=== PATIENT | male | born 1940 | race American Indian/Alaskan Native ===

== ENCOUNTER 2017-06-29 13:50 | Inpatient (IN) | payer OTHER ==
[~2017-06-29 13:50] MED LIST: AMLODIPINE BESYL5 MG PO; ATENOLOL25 MG PO; CIPRO500 MG PO; METOPROLOL SUCC25 MG; TAMS0.4C PO; TUSSIONEX PENNKI5 ML PO
== END 2017-07-03 11:56 | disposition home or self-care (01) | DRG 690 ==
LOC: SURH 13:50
PROC: 8E0ZXY6 Isolation (ICD-10-PCS; principal; 2017-06-29)
DX: N39.0 Urinary tract infection, site not specified (principal); B96.20 Unspecified Escherichia coli [E. coli] as the cause of diseases classified elsewhere; Z16.12 Extended spectrum beta lactamase (ESBL) resistance

== ENCOUNTER 2017-07-16 08:14 | Outpatient (CLI) | payer OTHER | END 2017-07-16 08:20 | disposition home or self-care (01) | LOC: TOM 08:14 | DX: N30.00 Acute cystitis without hematuria (principal); N20.0 Calculus of kidney ==

== ENCOUNTER 2017-07-17 07:27 | Outpatient (CLI) | payer OTHER | END 2017-07-17 07:38 | disposition home or self-care (01) | LOC: LAB 07:27 | DX: N30.00 Acute cystitis without hematuria (principal) ==

== ENCOUNTER 2017-09-06 07:56 | Outpatient (CLI) | payer OTHER | END 2017-09-06 08:00 | disposition home or self-care (01) | LOC: LAB 07:56 | DX: N40.0 Benign prostatic hyperplasia without lower urinary tract symptoms (principal); N30.00 Acute cystitis without hematuria; R31.29 Other microscopic hematuria ==

== ENCOUNTER 2017-09-06 08:30 | Outpatient (CLI) | payer OTHER | END 2017-09-06 08:39 | disposition home or self-care (01) | LOC: RAD 08:30 | DX: N40.0 Benign prostatic hyperplasia without lower urinary tract symptoms (principal); N20.0 Calculus of kidney ==

== ENCOUNTER 2017-10-01 05:40 | Day surgery (SDC) | payer OTHER ==
[~2017-10-01 05:40] MED LIST changes: +AMLODIPINE BESY10 MG PO; +FINASTERIDE; +METROPOROL; +TERAZOSIN HCL1 M1 PO
== END 2017-10-01 10:55 | disposition home or self-care (01) ==
LOC: CIR.AMB 05:40
DX: N21.0 Calculus in bladder (principal)

== ENCOUNTER 2020-10-03 11:15 | Emergency (ER) | payer OTHER ==
[~2020-10-03] VITALS: Ht 182.9 cm; Wt 117.9 kg
== END 2020-10-03 16:44 | disposition home or self-care (01) ==
LOC: ER 11:15 → EDBD 12:20 → ER 16:44
DX: L03.116 Cellulitis of left lower limb (principal); L03.115 Cellulitis of right lower limb

== ENCOUNTER 2021-05-23 10:03 | Outpatient (CLI) | payer OTHER | END 2021-05-23 10:21 | disposition home or self-care (01) | LOC: EDBD 10:03 → SONOGRAMA 10:03 | PROVIDERS: ATTEND Urology | DX: N40.0 Benign prostatic hyperplasia without lower urinary tract symptoms (principal); N30.00 Acute cystitis without hematuria; R31.1 Benign essential microscopic hematuria; M41.25 Other idiopathic scoliosis, thoracolumbar region ==

== ENCOUNTER 2022-06-19 10:59 | Outpatient (CLI) | payer OTHER | END 2022-06-19 11:10 | disposition home or self-care (01) | LOC: TOM 10:59 | PROVIDERS: ATTEND Internal Medicine | DX: N20.0 Calculus of kidney (principal); N40.0 Benign prostatic hyperplasia without lower urinary tract symptoms; N30.00 Acute cystitis without hematuria; R31.1 Benign essential microscopic hematuria ==

== ENCOUNTER 2022-07-15 13:38 | Outpatient (CLI) | payer OTHER | END 2022-07-15 13:45 | disposition home or self-care (01) | LOC: RAD 13:38 | PROVIDERS: ATTEND General Practice | DX: R06.09 Other forms of dyspnea (principal) ==

== ENCOUNTER 2023-05-10 12:36 | Emergency (ER) | payer OTHER ==
[~2023-05-10] VITALS: Ht 185.4 cm; Wt 113.4 kg
[2023-05-10] MEDS ORDERED: XARELTO10 MG PO (13:13)
[2023-05-10 16:39] LABS: HEMATOCRIT 40.7 % (39.0-48.0); HEMOGLOBIN 13.8 g/dL (13-16.00); MEAN CELL VOLUME 95.6 fL (80.0-100.00); MEAN CORPUSCULAR HEMOGLOBIN 32.4 pg (27.00-32.0); MEAN CORPUSCULAR HGB CONC 33.8 g/dl (32.0-36.0); PLATELET COUNT 156 K/uL (150-450); RED BLOOD COUNT 4.26 M/uL (4.00-6.00); RED CELL DISTRIBUTION WIDTH 14.5 % (11.5-14.5)
[2023-05-10 17:14] LABS: ALBUMIN 3.6 gm/dL (3.4-5.0); BILIRUBIN TOTAL 0.74 mg/dL (0.3-1.2); CALCIUM 9.1 mg/dL (8.5-10.1); CREATININE SERUM 0.77 mg/dL (0.70-1.30); GFR 96.72; GLOBULINA 3.5 G/DL (2.4-3.5); POTASSIUM 3.86 mEq/L (3.5-5.1); TOTAL PROTEIN 7.1 gm/dL (6.4-8.2)
== END 2023-05-10 19:07 | disposition home or self-care (01) ==
LOC: ER 12:36
PROVIDERS: General Practice
DX: S01.81XA Laceration without foreign body of other part of head, initial encounter (principal); W18.39XA Other fall on same level, initial encounter; Y93.89 Activity, other specified; Y92.013 Bedroom of single-family (private) house as the place of occurrence of the external cause; Y99.9 Unspecified external cause status; I10 Essential (primary) hypertension